=== PATIENT | male | born 1950 | race Asian ===

== ENCOUNTER 2018-08-14 15:40 | Emergency (ER) | payer MEDICARE, OTHER ==
[~2018-08-14] VITALS: Ht 167.6 cm; Wt 65.9 kg
[2018-08-14] MEDS ORDERED: FENO48TA15 PO (15:56)
[2018-08-14] MEDS ORDERED: LOSA25TA41 PO (15:56)
[2018-08-14] MEDS ORDERED: ALLO100T PO (15:56)
[2018-08-14] MEDS ORDERED: METF-960 PO (15:56)
[2018-08-14] MEDS ORDERED: ASPI81 PO (15:56)
[2018-08-14] MEDS ORDERED: BUPIVACAINE HCL/PF 0.25% 10 ML VIAL INJ ONE (17:00)
[2018-08-14] MEDS ORDERED: PERTUSS(ACELL),DIPH,TET VAC/PF 0.5 ML VIAL IM ONE (17:00)
[2018-08-14] MEDS ORDERED: CeFAZolin 2 GM/DEXTROSE 50 ML IV ONE (17:00)
[2018-08-14] MEDS ORDERED: LIDOCAINE 1% 10 ML VIAL INJ ONE (17:00)
[2018-08-14 17:46] VITALS: BP 163/67
[2018-08-14] MEDS ORDERED: POVIDONE-IODINE 10% 15 ML SOLUTION UD ONE (19:04)
== END 2018-08-14 19:28 | disposition home or self-care (01) ==
LOC: EMS 15:40
DX: S62.631B Displaced fracture of distal phalanx of left index finger, initial encounter for open fracture (principal); I10 Essential (primary) hypertension; Z79.82 Long term (current) use of aspirin; Z79.84 Long term (current) use of oral hypoglycemic drugs; Z79.899 Other long term (current) drug therapy; E11.9 Type 2 diabetes mellitus without complications; W45.8XXA Other foreign body or object entering through skin, initial encounter; Y93.89 Activity, other specified; Y92.89 Other specified places as the place of occurrence of the external cause; Y99.8 Other external cause status
CPT/HCPCS: 29130; 73130; 90471; 90715; 96365; 99283; J0690; J3490 ×2

== ENCOUNTER 2018-08-22 10:26 | Emergency (ER) | payer MEDICARE, OTHER ==
[~2018-08-22] VITALS: Ht 167.6 cm; Wt 65.9 kg
[~2018-08-22 10:26] MED LIST: ALLO100T PO; ASPI81 PO; FENO48TA15 PO; LOSA25TA41 PO; METF-960 PO
[2018-08-22 10:28] VITALS: BP 158/85
== END 2018-08-22 11:41 | disposition home or self-care (01) ==
LOC: EMS 10:28
DX: S61.211D Laceration without foreign body of left index finger without damage to nail, subsequent encounter (principal); E11.9 Type 2 diabetes mellitus without complications; I10 Essential (primary) hypertension; M10.9 Gout, unspecified; Z79.899 Other long term (current) drug therapy; X58.XXXD Exposure to other specified factors, subsequent encounter

== ENCOUNTER 2020-05-20 20:23 | Emergency (ER) | payer MEDICARE, OTHER ==
[~2020-05-20] VITALS: Ht 167.6 cm; Wt 75.0 kg
[~2020-05-20 20:23] MED LIST changes: -ALLO100T PO; +ALLO100T2 PO; +ASPI-1450 PO; -ASPI81 PO; -FENO48TA15 PO; +FENO48TA20 PO; +LOSA25TA21 PO; -LOSA25TA41 PO
[2020-05-20 20:45] VITALS: BP 162/83
[2020-05-20 20:47] LABS: GLUCOSE,POINT OF CARE 114 MG/DL (70-110)
== END 2020-05-20 21:04 | disposition left against medical advice (07) ==
LOC: EMS 20:26
DX: I10 Essential (primary) hypertension (principal); Z53.21 Procedure and treatment not carried out due to patient leaving prior to being seen by health care provider

== ENCOUNTER 2021-11-14 18:52 | Emergency (ER) | payer MEDICARE, OTHER ==
[~2021-11-14] VITALS: Ht 162.6 cm; Wt 77.3 kg
[~2021-11-14 18:52] MED LIST changes: +ALLO-97 PO; -ALLO100T2 PO; +AMLO10TA55 PO; +CLOP75TA60 PO; +FENO48TA12 PO; -FENO48TA20 PO; +ISOS30TA92 PO; -LOSA25TA21 PO; +METF-1211 PO; -METF-960 PO; +OMEP20CA12 PO; +PRAV40TA4 PO; +TAMS-13 PO; +TRAZ-252 PO
[2021-11-14] MEDS ORDERED: ASPI-1444 PO (19:39)
[2021-11-14] MEDS ORDERED: LOSA-382 PO (19:39)
[2021-11-14] MEDS ORDERED: CHLO25TA3 PO (19:39)
[2021-11-14] MEDS ORDERED: METO50 PO (19:39)
[2021-11-14] MEDS ORDERED: FLUT16H NASAL (19:39)
[2021-11-14] MEDS ORDERED: NITR0.4T52 SL (19:39)
[2021-11-14] MEDS ORDERED: AmLODIPine BESYLATE 10 MG TABLET PO ONE (19:45)
[2021-11-14 21:20] VITALS: BP 193/107
== END 2021-11-14 21:40 | disposition home or self-care (01) ==
LOC: EMS 18:52
DX: I10 Essential (primary) hypertension (principal); E11.9 Type 2 diabetes mellitus without complications; M10.9 Gout, unspecified; Z91.09 Other allergy status, other than to drugs and biological substances
CPT/HCPCS: 99283